=== PATIENT | male | born 1930 | race Caucasian/White ===

== ENCOUNTER 2020-01-11 09:41 | Inpatient (IN) ==
[2020-01-11] MEDS ORDERED: Nitroglycerin 0.4 MG TAB.SUBL SL PRN (21:11)
[2020-01-11] MEDS: Mirtazapine 15 MG TABLET PO SCH (22:00)
[2020-01-11] MEDS: Carbidopa/Levodopa 25/100 TABLET PO SCH (22:01)
[2020-01-11] MEDS: rOPINIRole 1 MG TABLET PO SCH (22:02)
[2020-01-12 05:23] LABS: Eosinophils % 0.8 %; Hematocrit 40.6 % (37.5-50.1); Lymphocytes # 0.8 K/mcL (0.6-4.6); Lymphocytes % 16.7 %; Mean Corpuscular HGB Conc 34.5 g/dL (31.6-35.5); Mean Corpuscular Hemoglobin 30.2 pg (28.0-33.3); Mean Corpuscular Volume 87.5 fL (83.0-100.0); Mean Platelet Volume 10.4 fL (9.4-12.4); Monocytes # 0.5 K/mcL (0.0-1.3); Monocytes % 9.6 %; Neutrophils # 3.6 K/mcL (1.6-8.9); Platelet Count 169 K/mcL (140-400); Red Blood Count 4.64 M/mcL (4.19-5.50); Red Cell Distribution Width 12.9 % (11.5-14.5); Segmented Neutrophils % 72.9 %; White Blood Count 4.9 K/mcL (4.3-11.1)
[2020-01-12 05:41] LABS: Alanine Aminotransferase 11 Units/L (7-52); Albumin 3.6 g/dL (3.5-5.7); Albumin/Globulin Ratio 1.6 (1.1-2.2); Alkaline Phosphatase 68 Units/L (34-104); Aspartate Amino Transferase 29 Units/L (13-39); BUN/Creatinine Ratio 21 (6-26); Bilirubin,Total 0.5 mg/dL (0.3-1.0); Blood Urea Nitrogen 18 mg/dL (8-23); Calcium 8.5 mg/dL (8.6-10.3); Carbon Dioxide 29 mEq/L (23-29); Chloride 100 mEq/L (98-107); Globulin 2.3 g/dL (2.4-3.5); Glucose 101 mg/dL (70-105); Magnesium 1.8 mg/dL (1.6-2.6); Osmolality,Calculated 282 (280-300); Potassium 3.8 mEq/L (3.5-5.1); Sodium 135 mEq/L (136-145); Total Protein 5.9 g/dL (6.4-8.9); eGFR For African Americans > 60 (> 60); eGFR For Non-African Americans > 60 (> 60)
[2020-01-12] MEDS: *HR* Enoxaparin 40 MG/0.4 ML SYRINGE SQ SCH (08:52)
[2020-01-12] MEDS: rOPINIRole 1 MG TABLET PO SCH ×3 (08:52→20:05)
[2020-01-12] MEDS: Loratadine 10 MG TABLET PO SCH (08:53)
[2020-01-12] MEDS: Carbidopa/Levodopa 25/100 TABLET PO SCH ×3 (08:53→20:05)
[2020-01-12] MEDS: Cyanocobalamin (B-12) 1,000 MCG TABLET PO SCH (08:53)
[2020-01-12] MEDS ORDERED: Spironolactone 25 MG TABLET PO SCH (09:00)
[2020-01-12] MEDS: Fluticasone Propionate Nasal 50 MCG/SPRAY BOTTLE NS SCH (15:48)
[2020-01-12] MEDS: cephALEXin 500 MG CAPSULE PO SCH ×2 (15:56→20:05)
[2020-01-12] MEDS: Acetaminophen 325 MG TABLET PO PRN (17:31)
[2020-01-12] MEDS: Mirtazapine 15 MG TABLET PO SCH (20:04)
[2020-01-13] MEDS: rOPINIRole 1 MG TABLET PO SCH ×3 (08:14→21:57)
[2020-01-13] MEDS: Loratadine 10 MG TABLET PO SCH (08:14)
[2020-01-13] MEDS: Cyanocobalamin (B-12) 1,000 MCG TABLET PO SCH (08:14)
[2020-01-13] MEDS: cephALEXin 500 MG CAPSULE PO SCH ×2 (08:14→21:57)
[2020-01-13] MEDS: Carbidopa/Levodopa 25/100 TABLET PO SCH ×3 (08:14→21:57)
[2020-01-13] MEDS: *HR* Enoxaparin 40 MG/0.4 ML SYRINGE SQ SCH (08:15)
[2020-01-13] MEDS: Aspirin Enteric Coated 81 MG Tablet PO SCH (08:57)
[2020-01-13] MEDS: Fluticasone Propionate Nasal 50 MCG/SPRAY BOTTLE NS SCH (08:58)
[2020-01-13] MEDS: Mirtazapine 15 MG TABLET PO SCH (21:56)
[2020-01-14] MEDS: Carbidopa/Levodopa 25/100 TABLET PO SCH ×3 (08:52→20:19)
[2020-01-14] MEDS: rOPINIRole 1 MG TABLET PO SCH ×3 (08:52→20:20)
[2020-01-14] MEDS: Fluticasone Propionate Nasal 50 MCG/SPRAY BOTTLE NS SCH (08:53)
[2020-01-14] MEDS: *HR* Enoxaparin 40 MG/0.4 ML SYRINGE SQ SCH (08:53)
[2020-01-14] MEDS: Cyanocobalamin (B-12) 1,000 MCG TABLET PO SCH (08:54)
[2020-01-14] MEDS: Loratadine 10 MG TABLET PO SCH (08:54)
[2020-01-14] MEDS: Acetaminophen 325 MG TABLET PO PRN (13:58)
[2020-01-14] MEDS: Mirtazapine 15 MG TABLET PO SCH (20:19)
[2020-01-15] MEDS: rOPINIRole 1 MG TABLET PO SCH ×3 (08:15→19:22)
[2020-01-15] MEDS: *HR* Enoxaparin 40 MG/0.4 ML SYRINGE SQ SCH (08:15)
[2020-01-15] MEDS: Carbidopa/Levodopa 25/100 TABLET PO SCH ×3 (08:16→19:23)
[2020-01-15] MEDS: Cyanocobalamin (B-12) 1,000 MCG TABLET PO SCH (08:16)
[2020-01-15] MEDS: Fluticasone Propionate Nasal 50 MCG/SPRAY BOTTLE NS SCH (08:16)
[2020-01-15] MEDS: Loratadine 10 MG TABLET PO SCH (08:16)
[2020-01-15 15:01] LABS: Bilirubin,Urine Negative (Negative); Blood,Urine Negative (Negative); Clarity,Urine Clear (Clear); Color,Urine Yellow (Yellow); Glucose,Urine (UA) Normal (Normal); Ketones,Urine Trace mg/dL (Negative); Leukocyte Esterase,Urine Negative (Negative); Nitrite,Urine Negative (Negative); Protein,Urine 30 mg/dL (Neg-Trace); Urobilinogen,Urine Normal (Normal)
[2020-01-15 15:03] LABS: WBC,Urine 0-3 per hpf (0-3)
[2020-01-15] MEDS: Mirtazapine 15 MG TABLET PO SCH (19:22)
[2020-01-16 06:09] LABS: Hematocrit 38.4 % (37.5-50.1); Hemoglobin 13.2 g/dL (12.9-16.9); Mean Corpuscular HGB Conc 34.4 g/dL (31.6-35.5); Mean Corpuscular Hemoglobin 30.6 pg (28.0-33.3); Mean Corpuscular Volume 89.1 fL (83.0-100.0); Mean Platelet Volume 10.1 fL (9.4-12.4); Platelet Count 233 K/mcL (140-400); Red Blood Count 4.31 M/mcL (4.19-5.50); Red Cell Distribution Width 12.8 % (11.5-14.5); White Blood Count 4.2 K/mcL (4.3-11.1)
[2020-01-16 06:25] LABS: BUN/Creatinine Ratio 21 (6-26); Blood Urea Nitrogen 15 mg/dL (8-23); Calcium 8.4 mg/dL (8.6-10.3); Carbon Dioxide 29 mEq/L (23-29); Chloride 103 mEq/L (98-107); Glucose 92 mg/dL (70-105); Magnesium 1.8 mg/dL (1.6-2.6); Osmolality,Calculated 284 (280-300); Potassium 3.4 mEq/L (3.5-5.1); Sodium 137 mEq/L (136-145); eGFR For African Americans > 60 (> 60); eGFR For Non-African Americans > 60 (> 60)
[2020-01-16] MEDS: Carbidopa/Levodopa 25/100 TABLET PO SCH ×3 (09:44→20:22)
[2020-01-16] MEDS: *HR* Enoxaparin 40 MG/0.4 ML SYRINGE SQ SCH (09:44)
[2020-01-16] MEDS: Loratadine 10 MG TABLET PO SCH (09:44)
[2020-01-16] MEDS: Cyanocobalamin (B-12) 1,000 MCG TABLET PO SCH (09:45)
[2020-01-16] MEDS: rOPINIRole 1 MG TABLET PO SCH ×3 (10:36→20:21)
[2020-01-16] MEDS: Aspirin Enteric Coated 81 MG Tablet PO SCH (10:36)
[2020-01-16] MEDS: Fluticasone Propionate Nasal 50 MCG/SPRAY BOTTLE NS SCH (10:37)
[2020-01-16] MEDS: Mirtazapine 15 MG TABLET PO SCH (20:22)
[2020-01-17] MEDS: rOPINIRole 1 MG TABLET PO SCH ×3 (08:47→20:20)
[2020-01-17] MEDS: *HR* Enoxaparin 40 MG/0.4 ML SYRINGE SQ SCH (08:47)
[2020-01-17] MEDS: Loratadine 10 MG TABLET PO SCH (08:47)
[2020-01-17] MEDS: Cyanocobalamin (B-12) 1,000 MCG TABLET PO SCH (08:47)
[2020-01-17] MEDS: Carbidopa/Levodopa 25/100 TABLET PO SCH ×3 (08:47→20:20)
[2020-01-17] MEDS: Fluticasone Propionate Nasal 50 MCG/SPRAY BOTTLE NS SCH (08:47)
[2020-01-17] MEDS: Mirtazapine 15 MG TABLET PO SCH (20:20)
[2020-01-18 05:43] LABS: Basophils % 0.1 %; Eosinophils % 0.2 %; Hematocrit 36.9 % (37.5-50.1); Hemoglobin 12.3 g/dL (12.9-16.9); Immature Granulocytes % 0.1 % (0-4); Lymphocytes # 0.9 K/mcL (0.6-4.6); Mean Corpuscular HGB Conc 33.3 g/dL (31.6-35.5); Mean Corpuscular Hemoglobin 30.2 pg (28.0-33.3); Mean Corpuscular Volume 90.7 fL (83.0-100.0); Mean Platelet Volume 9.9 fL (9.4-12.4); Monocytes # 0.4 K/mcL (0.0-1.3); Monocytes % 4.7 %; Platelet Count 228 K/mcL (140-400); Red Blood Count 4.07 M/mcL (4.19-5.50); Segmented Neutrophils % 84.9 %; White Blood Count 8.8 K/mcL (4.3-11.1)
[2020-01-18 05:45] LABS: Neutrophils # 7.5 K/mcL (1.6-8.9)
[2020-01-18 05:57] LABS: BUN/Creatinine Ratio 22 (6-26); Blood Urea Nitrogen 16 mg/dL (8-23); Calcium 8.3 mg/dL (8.6-10.3); Carbon Dioxide 27 mEq/L (23-29); Chloride 106 mEq/L (98-107); Glucose 102 mg/dL (70-105); Osmolality,Calculated 291 (280-300); Potassium 3.7 mEq/L (3.5-5.1); Sodium 140 mEq/L (136-145); eGFR For African Americans > 60 (> 60); eGFR For Non-African Americans > 60 (> 60)
[2020-01-18] MEDS: Loratadine 10 MG TABLET PO SCH (09:17)
[2020-01-18] MEDS: rOPINIRole 1 MG TABLET PO SCH ×3 (09:17→20:23)
[2020-01-18] MEDS: Carbidopa/Levodopa 25/100 TABLET PO SCH ×3 (09:17→20:24)
[2020-01-18] MEDS: Cyanocobalamin (B-12) 1,000 MCG TABLET PO SCH (09:17)
[2020-01-18] MEDS: Acetaminophen 325 MG TABLET PO PRN ×2 (09:17→20:23)
[2020-01-18] MEDS: *HR* Enoxaparin 40 MG/0.4 ML SYRINGE SQ SCH (09:18)
[2020-01-18] MEDS: Fluticasone Propionate Nasal 50 MCG/SPRAY BOTTLE NS SCH (09:19)
[2020-01-18] MEDS: Aspirin Enteric Coated 81 MG Tablet PO SCH (09:19)
[2020-01-18] MEDS: Mirtazapine 15 MG TABLET PO SCH (20:24)
[2020-01-19] MEDS: *HR* Enoxaparin 40 MG/0.4 ML SYRINGE SQ SCH (09:03)
[2020-01-19] MEDS: rOPINIRole 1 MG TABLET PO SCH ×3 (09:03→19:54)
[2020-01-19] MEDS: Cyanocobalamin (B-12) 1,000 MCG TABLET PO SCH (09:03)
[2020-01-19] MEDS: Fluticasone Propionate Nasal 50 MCG/SPRAY BOTTLE NS SCH (09:03)
[2020-01-19] MEDS: Loratadine 10 MG TABLET PO SCH (09:03)
[2020-01-19] MEDS: Carbidopa/Levodopa 25/100 TABLET PO SCH ×3 (09:03→19:54)
[2020-01-19] MEDS: Mirtazapine 15 MG TABLET PO SCH (19:54)
[2020-01-20] MEDS: *HR* Enoxaparin 40 MG/0.4 ML SYRINGE SQ SCH (08:32)
[2020-01-20] MEDS: Loratadine 10 MG TABLET PO SCH (08:33)
[2020-01-20] MEDS: Carbidopa/Levodopa 25/100 TABLET PO SCH ×3 (08:33→21:21)
[2020-01-20] MEDS: Cyanocobalamin (B-12) 1,000 MCG TABLET PO SCH (08:33)
[2020-01-20] MEDS: rOPINIRole 1 MG TABLET PO SCH ×3 (08:33→21:21)
[2020-01-20] MEDS: Aspirin Enteric Coated 81 MG Tablet PO SCH (08:35)
[2020-01-20] MEDS: Fluticasone Propionate Nasal 50 MCG/SPRAY BOTTLE NS SCH (10:26)
[2020-01-20] MEDS: Mirtazapine 15 MG TABLET PO SCH (21:21)
[2020-01-21] MEDS: rOPINIRole 1 MG TABLET PO SCH ×3 (09:11→20:24)
[2020-01-21] MEDS: *HR* Enoxaparin 40 MG/0.4 ML SYRINGE SQ SCH (09:11)
[2020-01-21] MEDS: Loratadine 10 MG TABLET PO SCH (09:12)
[2020-01-21] MEDS: Carbidopa/Levodopa 25/100 TABLET PO SCH ×3 (09:12→20:25)
[2020-01-21] MEDS: Cyanocobalamin (B-12) 1,000 MCG TABLET PO SCH (09:13)
[2020-01-21] MEDS: Fluticasone Propionate Nasal 50 MCG/SPRAY BOTTLE NS SCH (11:40)
[2020-01-21] MEDS: Mirtazapine 15 MG TABLET PO SCH (20:24)
[2020-01-22] MEDS: Carbidopa/Levodopa 25/100 TABLET PO SCH ×3 (08:28→19:47)
[2020-01-22] MEDS: Cyanocobalamin (B-12) 1,000 MCG TABLET PO SCH (08:28)
[2020-01-22] MEDS: Loratadine 10 MG TABLET PO SCH (08:28)
[2020-01-22] MEDS: rOPINIRole 1 MG TABLET PO SCH ×3 (08:28→19:47)
[2020-01-22] MEDS: *HR* Enoxaparin 40 MG/0.4 ML SYRINGE SQ SCH (08:28)
[2020-01-22] MEDS: Fluticasone Propionate Nasal 50 MCG/SPRAY BOTTLE NS SCH (08:31)
[2020-01-22] MEDS: Mirtazapine 15 MG TABLET PO SCH (19:47)
[2020-01-22] MEDS: Acetaminophen 325 MG TABLET PO PRN (19:48)
[2020-01-23] MEDS: Aspirin Enteric Coated 81 MG Tablet PO SCH (09:18)
[2020-01-23] MEDS: Fluticasone Propionate Nasal 50 MCG/SPRAY BOTTLE NS SCH (09:18)
[2020-01-23] MEDS: *HR* Enoxaparin 40 MG/0.4 ML SYRINGE SQ SCH (09:18)
[2020-01-23] MEDS: Loratadine 10 MG TABLET PO SCH (09:18)
[2020-01-23] MEDS: Cyanocobalamin (B-12) 1,000 MCG TABLET PO SCH (09:18)
[2020-01-23] MEDS: Carbidopa/Levodopa 25/100 TABLET PO SCH ×3 (09:18→19:52)
[2020-01-23] MEDS: rOPINIRole 1 MG TABLET PO SCH ×3 (09:22→19:52)
[2020-01-23] MEDS: Acetaminophen 325 MG TABLET PO PRN (19:52)
[2020-01-23] MEDS: Mirtazapine 15 MG TABLET PO SCH (19:52)
[2020-01-24] MEDS: Cyanocobalamin (B-12) 1,000 MCG TABLET PO SCH (08:34)
[2020-01-24] MEDS: Carbidopa/Levodopa 25/100 TABLET PO SCH ×3 (08:34→19:34)
[2020-01-24] MEDS: rOPINIRole 1 MG TABLET PO SCH ×3 (08:35→19:34)
[2020-01-24] MEDS: *HR* Enoxaparin 40 MG/0.4 ML SYRINGE SQ SCH (08:35)
[2020-01-24] MEDS: Loratadine 10 MG TABLET PO SCH (08:36)
[2020-01-24] MEDS: Fluticasone Propionate Nasal 50 MCG/SPRAY BOTTLE NS SCH (08:37)
[2020-01-24] MEDS: Acetaminophen 325 MG TABLET PO PRN (19:34)
[2020-01-24] MEDS: Mirtazapine 15 MG TABLET PO SCH (19:34)
[2020-01-25 05:45] LABS: Hematocrit 36.3 % (37.5-50.1); Hemoglobin 12.2 g/dL (12.9-16.9); Mean Corpuscular HGB Conc 33.6 g/dL (31.6-35.5); Mean Corpuscular Hemoglobin 30.7 pg (28.0-33.3); Mean Corpuscular Volume 91.2 fL (83.0-100.0); Mean Platelet Volume 10.3 fL (9.4-12.4); Platelet Count 206 K/mcL (140-400); Red Blood Count 3.98 M/mcL (4.19-5.50); Red Cell Distribution Width 13.4 % (11.5-14.5); White Blood Count 4.2 K/mcL (4.3-11.1)
[2020-01-25 05:59] LABS: Alanine Aminotransferase 5 Units/L (7-52); Albumin 3.3 g/dL (3.5-5.7); Albumin/Globulin Ratio 1.6 (1.1-2.2); Alkaline Phosphatase 59 Units/L (34-104); Aspartate Amino Transferase 10 Units/L (13-39); BUN/Creatinine Ratio 19 (6-26); Bilirubin,Total 0.5 mg/dL (0.3-1.0); Blood Urea Nitrogen 16 mg/dL (8-23); Calcium 8.5 mg/dL (8.6-10.3); Carbon Dioxide 28 mEq/L (23-29); Chloride 106 mEq/L (98-107); Globulin 2.1 g/dL (2.4-3.5); Glucose 78 mg/dL (70-105); Magnesium 1.8 mg/dL (1.6-2.6); Osmolality,Calculated 286 (280-300); Potassium 3.8 mEq/L (3.5-5.1); Sodium 138 mEq/L (136-145); Total Protein 5.4 g/dL (6.4-8.9); eGFR For African Americans > 60 (> 60); eGFR For Non-African Americans > 60 (> 60)
[2020-01-25] MEDS: rOPINIRole 1 MG TABLET PO SCH ×3 (09:06→21:15)
[2020-01-25] MEDS: Aspirin Enteric Coated 81 MG Tablet PO SCH (09:07)
[2020-01-25] MEDS: Carbidopa/Levodopa 25/100 TABLET PO SCH ×3 (09:07→21:14)
[2020-01-25] MEDS: Cyanocobalamin (B-12) 1,000 MCG TABLET PO SCH (09:07)
[2020-01-25] MEDS: *HR* Enoxaparin 40 MG/0.4 ML SYRINGE SQ SCH (09:07)
[2020-01-25] MEDS: Fluticasone Propionate Nasal 50 MCG/SPRAY BOTTLE NS SCH (09:08)
[2020-01-25] MEDS: Loratadine 10 MG TABLET PO SCH (10:00)
[2020-01-25] MEDS: Mirtazapine 15 MG TABLET PO SCH (21:14)
[2020-01-25] MEDS: Acetaminophen 325 MG TABLET PO PRN (21:15)
[2020-01-26 07:23] VITALS: BP 137/71
[2020-01-26] MEDS: *HR* Enoxaparin 40 MG/0.4 ML SYRINGE SQ SCH (09:17)
[2020-01-26] MEDS: Carbidopa/Levodopa 25/100 TABLET PO SCH (09:17)
[2020-01-26] MEDS: Cyanocobalamin (B-12) 1,000 MCG TABLET PO SCH (09:17)
[2020-01-26] MEDS: Loratadine 10 MG TABLET PO SCH (09:17)
[2020-01-26] MEDS: rOPINIRole 1 MG TABLET PO SCH (09:17)
[2020-01-26] MEDS: Fluticasone Propionate Nasal 50 MCG/SPRAY BOTTLE NS SCH (09:18)
== END 2020-01-26 11:06 | disposition home health service (06) | DRG 178 ==
LOC: INPGRE 20:45
PROVIDERS: ADMIT Family Medicine; ATTEND Family Medicine